=== PATIENT | female | born 1950 | race Caucasian/White ===

== ENCOUNTER → 2017-01-11 | Outpatient (CLI) | payer MEDICARE, BC ==
[~2017-01-11] MED LIST: ALLEGRA PO; ALLERGY INJECTIONS; CALCIUM; CALCIUM 600 +1 EAC9 PO; CLARINEX5 MG; CLARITIN D; DIOVAN HCT 160/1 TAB; EFFEXOR; FEXOFENADINE HC60 MG PO; FISH OIL 1,0001 EAC4; LEVOTHYROXINE112 MCG PO; LIVALO2 MG PO; LOSARTAN-HCTZ1 EAC2 PO; NEXIUM PO; PROBIOTIC1 EAC5; SINGULAIR; SINGULAIR PO; STOOL SOFTENER1 EAC1 PO; SYNTHROID; TUSSIN MAX15 MG/5 M1; VITAMIN B 6; VOLTAREN75 MG PO; WELLBUTRIN SR150 M1; WELLBUTRIN SR150 MG PO; ZOCOR PO; ZYRTEC10 M1 PO
--- NOTE | ~2017-01-11 | EKG ---
PATIENT: KELBY HERNÁNDEZ UNIT #: [id number] Ventricular Rate: 69 BPM Atrial Rate: 69 BPM P-R Interval: 126 ms QRS Duration: 80 ms Q-T Interval: 410 ms QTC Calculation(Bezet): 439 ms P Mobile: 28 degrees Calculated R Mobile: -3 degrees Calculated T Mobile: 64 degrees Diagnosis Line: Normal sinus rhythm Diagnosis Line: Normal ECG Diagnosis Line: When compared with ECG of 15-JUN-2015 16:11, Diagnosis Line: No significant change was found Diagnosis Line: Confirmed by SKYLAR AMARO MD ([id number]) on Diagnosis Line: 01/12/2017 7:32:24 AM INTERPRETING MD: PREM GABRIEL
[2017-01-11 10:52] LABS: ALBUMIN SERUM 4.4 g/dL (3.5-5.0); BILIRUBIN,TOTAL 0.8 mg/dL (0.2-2.0); BUN/CREATININE RATIO 25.71; CALCIUM SERUM 9.7 mg/dL (8.4-10.2); CREATININE SERUM 0.7 mg/dL (0.6-1.4); PROTEIN TOTAL SERUM 6.8 g/dL (6.0-8.3)
== END | disposition home or self-care (01) ==
LOC: CAMB 09:20
PROVIDERS: Surgery
DX: Z01.818 Encounter for other preprocedural examination (principal); K80.20 Calculus of gallbladder without cholecystitis without obstruction
CPT/HCPCS: 36415; 80053; 93005

== ENCOUNTER → 2017-01-16 | Day surgery (SDC) | payer MEDICARE, BC ==
--- NOTE | ~2017-01-16 | OR ---
Unit #: [id number] #: [id number] Patient: KELBY HERNÁNDEZ [id number] [address] [address] [id number] MR#: [id number] NAME: KELBY HERNÁNDEZ ROOM: Date of Procedure: 01/16/2017 Admission Date: 01/16/2017 Surgeon: Silvano Bliss Jr., M.D. : 1950 Attending Physician: Silvano Bliss Jr., M.D. Primary Care Physician: Saw Crook M.D. OPERATIVE REPORT INDICATION FOR PROCEDURE The patient is a 66-year-old white female, who has recently had some problems with biliary colic. She has been worked up, noted to have evidence of gallstones with chronic cholecystitis. She is brought in this time for laparoscopic cholecystectomy at her request. She understands the procedure including the risks and consents. PREOPERATIVE DIAGNOSES Chronic cholecystitis and cholelithiasis. POSTOPERATIVE DIAGNOSES Chronic cholecystitis and cholelithiasis, noting multiple adhesions in the lower abdomen as well as omental adhesions of the gallbladder. ANESTHESIA General with endotracheal intubation and 0.5% Marcaine with epinephrine locally. PROCEDURE PERFORMED Laparoscopic cholecystectomy. DESCRIPTION OF PROCEDURE The patient was positioned in the supine position. After being anesthetized and intubated, she was prepped and draped in routine fashion for laparoscopic cholecystectomy. A small 0.5 cm incision was made in the right lateral abdominal wall area and a 5-mm Optiview introduced in the abdomen. The abdomen was then inflated with CO2 gas. The camera was placed intraabdominal. There was no evidence of any injury related to introduction of the Optiview. A 5-mm port was placed just to the right and below the umbilicus and a 5-mm Optiview was introduced in this area. Intra-abdominal exploration was carried out with camera. There were some adhesions in the lower abdomen as well as adhesions of the omentum to the gallbladder, but no other specific abnormalities. The camera was switched to the lower port. An additional 5-mm port was placed in the right lateral abdominal wall area and 11-mm port just to the right of the upper midline. The gallbladder was lifted. Multiple adhesions were dissected free by both with hook scissors as well as blunt dissection. After the gallbladder was freed up, dissection was carried out on the triangle of Calot, cystic duct which was small, was isolated, hemoclipped x4 and divided approximately a centimeter from its junction with the common duct. Cystic artery was identified, hemoclipped x3, and divided. The gallbladder was removed from its bed with the hook cautery using a current Unit #: [id number] #: [id number] Patient: KELBY HERNÁNDEZ J of 20 and after it was released, it was removed through the upper midline incision along with grasping clamp and the port. The port was replaced. Subhepatic space checked. There was no evidence of any bleeding from the gallbladder bed. The clips on cystic duct and cystic artery were intact with no evidence of any leak or bleeding. The CO2 was then expressed from the abdomen. Using the neoClose technique, the fascia in the larger port site was approximated and after the CO2 was expressed from the abdomen, the ports removed. There was no evidence of any bleeding from the port sites. The port sites were injected with 0.5% Marcaine with epinephrine locally. The fascia in the larger port site was reapproximated with a [id number] 0 Vicryl suture. The wounds were irrigated. After hemostasis achieved with Bovie cautery, skin edges approximated with stainless-steel skin clips and skin stapling device. Sterile dressings were applied externally. Estimated blood loss less than 50 mL. The patient received less than 1000 mL crystalloid solution during the procedure. Sponges and instruments counts were correct x3. No drains used. No complications. The patient was taken to the recovery room with stable vital signs in satisfactory condition. Dictated by... Silvano Bliss Jr., M.D. JMB/tamia TD: 01/16/2017 13:11 JOB #: [id number] OPERATIVE REPORT Page 1 of 1 X Silvano Bliss MD X PROCEDURE OPERATIVE NOTE
== END | disposition home or self-care (01) ==
LOC: CSUR 07:22
DX: K80.10 Calculus of gallbladder with chronic cholecystitis without obstruction (principal); K21.9 Gastro-esophageal reflux disease without esophagitis; I10 Essential (primary) hypertension; E78.5 Hyperlipidemia, unspecified; E78.00 Pure hypercholesterolemia, unspecified; M19.90 Unspecified osteoarthritis, unspecified site; R79.89 Other specified abnormal findings of blood chemistry; E03.9 Hypothyroidism, unspecified; F32.9 Major depressive disorder, single episode, unspecified; L40.9 Psoriasis, unspecified; Z87.891 Personal history of nicotine dependence; Z90.49 Acquired absence of other specified parts of digestive tract; Z98.49 Cataract extraction status, unspecified eye; Z98.51 Tubal ligation status
CPT/HCPCS: 88304; J0330; J0690; J1170; J1650; J2250; J2405; J3010